=== PATIENT | male | born 1985 | race Caucasian/White ===

== ENCOUNTER 2019-01-22 07:57 | Day surgery (SDC) | payer BC ==
[~2019-01-22] VITALS: Ht 177.8 cm; Wt 108.3 kg
[2019-01-22] MEDS ORDERED: MIDAZOLAM 1 MG/ML, 2ML ONE (09:07)
[2019-01-22] MEDS ORDERED: FENTANYL PF 250 MCG/5ML ONE (09:08)
[2019-01-22] MEDS ORDERED: ROCURONIUM 10MG/ML,5ML ONE (09:50)
[2019-01-22] MEDS ORDERED: LABETALOL 5MG/ML, 20ML IV PRN (10:00)
[2019-01-22] MEDS ORDERED: MEPERIDINE/PF 25MG/0.5ML IVPush PRN (10:00)
[2019-01-22] MEDS ORDERED: ONDANSETRON 2MG/ML, 2ML IV PRN ×2 (10:00→11:00)
[2019-01-22] MEDS ORDERED: hydrALAzine 20 MG/ML, 1ML IV PRN (10:00)
[2019-01-22] MEDS ORDERED: PROMETHAZINE 25 MG/ML, 1ML IV PRN (10:00)
[2019-01-22] MEDS ORDERED: OXYcodone 5 MG/5 ML ORAL.SOL UDC PO PRN (10:00)
[2019-01-22] MEDS ORDERED: ACETAMINOPHEN 325 MG TABLET PO PRN (10:00)
[2019-01-22] MEDS ORDERED: HYDROmorphone 2 MG/ML, 1ML IVPush PRN (10:00)
[2019-01-22] MEDS ORDERED: FENTANYL PF 100 MCG/2ML IV PRN (10:00)
[2019-01-22] MEDS ORDERED: ONDANSETRON 2MG/ML, 2ML ONE ×2 (10:35→11:33)
[2019-01-22] MEDS ORDERED: DEXAMETHASONE 4 MG/ML, 5ML ONE (10:35)
[2019-01-22] MEDS ORDERED: PROPOFOL 10 MG/ML, 20ML ONE (10:35)
[2019-01-22] MEDS ORDERED: HYDROcodone/APAP 5/325 TABLET PO PRN (11:00)
[2019-01-22] MEDS ORDERED: PLEASE ENTER ALLERGIES MC SCH (11:00)
[2019-01-22] MEDS ORDERED: OXYcodone 5 MG/5 ML ORAL.SOL UDC ONE (11:10)
[2019-01-22 13:55] VITALS: BP 161/68
[2019-01-22] MEDS ORDERED: PHEN-418 PO (14:46)
[2019-01-22] MEDS ORDERED: CIPR500T87 PO (14:47)
[2019-01-22] MEDS ORDERED: ONDA4TAB7 PO (14:48)
== END 2019-01-22 15:01 | disposition home or self-care (01) ==
LOC: OR 07:57 → 4NOR 08:15 → OR 15:01
PROVIDERS: ATTEND Urology
DX: N20.1 Calculus of ureter (principal)
CPT/HCPCS: 52356; 88300; C2617; J1100; J2250; J2405; J2704; J3010; 82360; G0378